=== PATIENT | female | born 1980 | race Caucasian/White ===

== ENCOUNTER 2017-05-12 19:19 | Emergency (ER) | payer OTHER ==
[2017-05-12] MEDS ORDERED: KETOROLAC 30 MG/ML VIAL IVP ONE (19:33)
--- NOTE | 2017-05-12 19:38 | Emergency Department Record ---
History of Present Illness - General Chief Complaint: Abdominal Pain Stated Complaint: R ABD PAIN Time Seen by Provider: 05/12/17 19:20 Source: Patient Mode of Arrival: Ambulatory Limitations: No limitations - History of Present Illness Initial Comments: 36 yo female presents to ED for evaluation of right sided pelvic pain that began around 9:30 this morning. Patient denies urinary symptoms or vaginal discharge complaints, denies fevers/chills, nausea/vomiting, or a change in stools. Patient reports that moving around/walking worsen her symptoms, denies taking anything for pain prior to arrival. Patient reports history of RA and IBS. MD Complaint: Abdominal pain Onset/Timin -: Hour(s) Location: RLQ Radiation: None Migration to: No migration Severity: Moderate Quality: Aching, Burning, Sharp Consistency: Intermittent Improves With: Nothing Worsens With: Movement Associated Symptoms: Denies other symptoms - Related Data Patient : No Previous Rx's Medication Instructions Recorded Nitrofurantoin Culebra [Macrobid] 100 mg PO BID #14 capsule 05/12/17 Allergies Allergy/AdvReac Type Severity Reaction Status Date / Time codeine Allergy HIVES Verified 05/12/17 19:35 dicyclomine HCl [From Bentyl] Allergy HIVES Verified 05/12/17 19:34 etanercept [From Enbrel] Allergy HIVES Verified 05/12/17 19:35 latex Allergy HIVES Verified 05/12/17 19:35 sulfadiazine Allergy HIVES Verified 05/12/17 19:35 Travel Screening - Travel/Exposure Within Last 30 Days Have you traveled within the last 30 days?: No - Travel/Exposure Within Last Year Have you traveled outside the [place] in the last year?: No - Additonal Travel Details Have you been exposed to anyone with a communicable illness?: No Review of Systems Constitutional: Denies: Chills, Fever, Malaise, Night sweats Eyes: Denies: Eye discharge, Eye pain ENT: Denies: Congestion, Ear pain, Epistaxis Respiratory: Denies: Cough, Dyspnea Cardiovascular: Denies: Chest pain, Dyspnea on exertion Endocrine: Denies: Fatigue, Heat or cold intolerance Gastrointestinal: Reports: Abdominal pain. Denies: Constipation, Nausea, Vomiting Genitourinary: Denies: Incontinence, Retention Musculoskeletal: Denies: Arthralgia, Back pain, Gout, Joint swelling Skin: Denies: Bruising, Change in color Neurological: Denies: Abnormal gait, Confusion, Headache, Seizure Psychiatric: Denies: Anxiety Hematological/Lymphatic: Denies: Anemia, Blood Clots Past Medical History - SOCIAL HISTORY Smoking Status: Never smoker Alcohol Use: None Drug Use: None - RESPIRATORY Hx Respiratory Disorders: No - CARDIOVASCULAR Hx Cardio Disorders: No - NEURO Hx Neuro Disorders: Yes Hx Headaches: Yes - GI Hx GI Disorders: Yes Hx Irritable Bowel: Yes - Hx Genitourinary Disorders: No - ENDOCRINE Hx Endocrine Disorders: No - MUSCULOSKELETAL Hx Musculoskeletal Disorders: No - PSYCH Hx Psych Problems: Yes Hx Depression: Yes - HEMATOLOGY/ONCOLOGY Hx Hematology/Oncology Disorders: No Family Medical History Any Significant Family History?: No Physical Exam - General General Appearance: Alert, Oriented x3, Cooperative, Moderate distress Limitations: No limitations - Head Head exam: Atraumatic, Normocephalic, Normal inspection Head exam detail: negative: Abrasion, Contusion, Demarco's sign, General tenderness, Hematoma, Laceration - Eye Eye exam: Normal appearance. negative: Conjunctival injection, Periorbital swelling, Periorbital tenderness, Scleral icterus - ENT Ear exam: negative: Auricular hematoma, Auricular trauma Nasal Exam: negative: Active bleeding, Discharge, Dried blood, Foreign body Mouth exam: negative: Drooling, Laceration, Muffled voice, Tongue elevation - Neck Neck exam: Normal inspection. negative: Meningismus, Tenderness - Respiratory Respiratory exam: Normal lung sounds bilaterally. negative: Rales, Respiratory distress, Rhonchi, Stridor - Cardiovascular Cardiovascular Exam: Regular rate, Normal rhythm, Normal heart sounds - GI/Abdominal GI/Abdominal exam: Soft, Tenderness, Other (TTP to the right pubic region on examination, no erythema or signs of abscess present, no obvious hernia is present). negative: Rebound, Rigid - Rectal Rectal exam: Deferred - exam: Deferred - Extremities Extremities exam: Normal inspection. negative: Calf tenderness, Pedal edema, Tenderness - Back Back exam: Denies: CVA tenderness (R), CVA tenderness (L) - Neurological Neurological exam: Alert, Normal gait, Oriented X3 - Psychiatric Psychiatric exam: Normal affect, Normal mood - Skin Skin exam: Normal color. negative: Abrasion Type of lesion: negative: abrasion Course Vital Signs 05/12/17 19:21 Temperature 97.6 F Pulse Rate 100 H Respiratory 20 Rate Blood Pressure 176/108 Pulse Ox 97 - Reevaluation(s) Reevaluation #1: 05/12/17 20:09 Labs reviewed and are grossly unremarkable for an acute process except for 2+ bacteria in the urine. Patient is currently in CT for imaging. Reevaluation #2: 05/12/17 20:56 CT Pelvis: Nothing acute Patient reassessed and updated on all results, reports that her symptoms are improved following Toradol and she is resting comfortably reading a book. Will treat for likely UTI with instructions to continue Ibuprofen as needed for her pelvic wall symptoms and to follow-up with her PCP in 3-5 days. Patient agrees with the plan as discussed. Medical Decision Making - Lab Data Result diagrams: 05/12/17 19:41 05/12/17 19:41 Disposition Disposition: Discharge Clinical Impression: UTI (urinary tract infection) Qualifiers: Urinary tract infection type: acute cystitis Hematuria presence: without hematuria Qualified Code(s): N30.00 - Acute cystitis without hematuria Disposition: Home, Self-Care Condition: (2) Stable Instructions: Pelvic Pain in Women (ED) Additional Instructions: Return to ED if your symptoms worsen or if you have any concerns. Macrobid as directed. Follow-up with your family doctor in 3-5 days as directed. Prescriptions: Nitrofurantoin C[place]bra [Macrobid] 100 mg PO BID #14 capsule Forms: Patient Portal Access Time of Disposition: 20:59 Quality - Quality Measures Quality Measures: N/A - Blood Pressure Screening Does Patient Have Any of the Following: No Blood Pressure Classification: Pre-Hypertensive BP Reading Systolic Measurement: 148 Diastolic Measurement: 82 Screening for High Blood Pressure: < Pre-Hypertensive BP, F/U Documented > [ G8950] Pre-Hypertensive Follow-up Interventions: Referral to alternative/primary care provider.
[2017-05-12] MEDS ORDERED: 0.9 % SODIUM CHLORIDE 1000ML 1,000 ML IV SCH (19:45)
[2017-05-12 19:49] LABS: BASO % 0.5 % (0-6); EOS % 2.3 % (0-6); GRAN % 42.6 % (47-80); HEMOGLOBIN 13.2 gm/dl (11.6-16.0); LYMPH % 44.9 % (16-45); MEAN CELL VOLUME 94.6 fl (81-97); MEAN CORPUSCULAR HEMOGLOBIN 31.2 pg (27-33); MEAN PLATELET VOLUME 9.5 fl (7.4-10.4); MONO % 9.7 % (0-9); PLATELET COUNT 389 K/uL (130-400); RED BLOOD COUNT 4.23 M/uL (3.80-5.40); RED CELL DISTRIBUTION WIDTH 13.3 % (11.5-14.5); WHITE BLOOD COUNT W/O DIFF 7.9 K/uL (4.2-12.2)
[2017-05-12 19:59] LABS: URINE APPEARANCE CLEAR; URINE BILIRUBIN NEGATIVE (NEGATIVE); URINE BLOOD SMALL (NEGATIVE); URINE COLOR YELLOW; URINE GLUCOSE (UA) NEGATIVE (NEGATIVE); URINE KETONE NEGATIVE (NEGATIVE); URINE LEUKOCYTE ESTERASE NEGATIVE (NEGATIVE); URINE NITRITE NEGATIVE (NEGATIVE); URINE PROTEIN NEGATIVE (NEGATIVE); URINE UROBILINOGEN 0.2 E.U./dL (0.20 - 1.00)
[2017-05-12 20:02] LABS: HCG,QUALITATIVE URINE NEGATIVE (NEGATIVE); URINE BACTERIA 2+; URINE RBC 0-2 (NONE SEEN); URINE WBC 0 - 2 (0-2/hpf)
[2017-05-12 20:06] LABS: ALB/GLOB RATIO 1.2 (1.1-1.8); ALKALINE PHOSPHATASE 83 U/L (35-104); ALT/SGPT 10 U/L (<33); AST/SGOT 11 U/L (10.0-35.0); BLOOD UREA NITROGEN 8 mg/dL (6-20); CREATININE 0.6 mg/dL (0.5-0.9); EST GLOMERULAR FILTRATION RATE > 60 mL/min; GLUCOSE,RANDOM 105 mg/dL (74-109); TOTAL PROTEIN 7.4 g/dL (6.6-8.7)
--- NOTE | 2017-05-14 15:47 | CT SCAN REPORT ---
DATE: 05/12/2017. EXAM: CT SCAN OF THE PELVIS WITH CONTRAST. HISTORY: Right lower groin pain beginning this morning. Pain with movement. TECHNIQUE: Contrast-enhanced helical CT examination of the pelvis is performed with 100 mL of Omnipaque 300 utilized. COMPARISON: None. FINDINGS: Lack of oral contrast utilization limits evaluation of bowel. No bowel dilatation or bowel wall thickening. The appendix is at least partially visualized and is normal in appearance. There is a tiny, fat-filled umbilical hernia appearing uncomplicated. No pelvic mass, lymphadenopathy, or free pelvic fluid is visualized. The ovaries are not enlarged. The uterus is positioned near the midline. No intrinsic urinary bladder abnormality is seen. There is no evidence of inguinal hernia nor femoral hernia. There are a few nonenlarged inguinal/common femoral lymph nodes noted bilaterally. No gross subcutaneous fat stranding, mass, nor fluid collection. No lytic or blastic bone lesion is seen. IMPRESSION: 1. VERY FEW NONSPECIFIC, NONENLARGED INGUINAL/COMMON FEMORAL LYMPH NODES BILATERALLY. 2. SMALL, FAT-FILLED UMBILICAL HERNIA. THE EXAMINATION IS OTHERWISE UNREMARKABLE. JOB NUMBER: [id number] [facility]
== END 2017-05-12 21:05 | disposition home or self-care (01) ==
LOC: ER 19:19
DX: N30.00 Acute cystitis without hematuria (principal); R10.31 Right lower quadrant pain
CPT/HCPCS: 99284 ×2; 96374; 85025; 80053; 81001; 81025; 72193; Q9967; J1885; J7030

== ENCOUNTER 2017-06-30 17:32 | Emergency (ER) | payer OTHER ==
--- NOTE | 2017-06-30 17:46 | Emergency Department Record ---
History of Present Illness - General Chief complaint: Pain Stated complaint: GROIN PAIN Time Seen by Provider: 06/30/17 17:36 Source: Patient Mode of Arrival: Ambulatory Limitations: No limitations - History of Present Illness Initial comments: The patient is here due to the acute onset of R groin pain about 4 hours ago. The pain is sharp and stabbing and nonradiating. She denies any dysuria, hematuria, AP, back pain, or any vaginal bleeding or discharge. The patient had the same issue about 6 weeks ago and did come here and had a neg workup including a pelvic CT. She also denies any trauma or injury. Complaint: Other Onset/Timin -: Hour(s) Location: Right, Other History of Same: Yes Severity scale (1-10): 9 Quality: Sharp, Stabbing, Other Improves with: Nothing Worsens with: Exertion, Walking, Weight bearing Associated Symptoms: Denies other symptoms - Related Data Allergies Allergy/AdvReac Type Severity Reaction Status Date / Time codeine Allergy HIVES Verified 06/30/17 17:44 dicyclomine HCl [From Bentyl] Allergy HIVES Verified 06/30/17 17:44 etanercept [From Enbrel] Allergy HIVES Verified 06/30/17 17:44 latex Allergy HIVES Verified 06/30/17 17:44 sulfadiazine Allergy HIVES Verified 06/30/17 17:44 Travel Screening - Travel/Exposure Within Last 30 Days Have you traveled within the last 30 days?: No - Travel/Exposure Within Last Year Have you traveled outside the [place] in the last year?: No - Additonal Travel Details Have you been exposed to anyone with a communicable illness?: No - Travel Symptoms Symptom Screening: None Review of Systems Constitutional: Denies: Chills, Fever Eyes: Denies: Eye discharge ENT: Denies: Congestion Respiratory: Denies: Cough, Dyspnea Past Medical History - SOCIAL HISTORY Smoking Status: Never smoker Alcohol Use: None Drug Use: None - RESPIRATORY Hx Respiratory Disorders: No - CARDIOVASCULAR Hx Cardio Disorders: No - NEURO Hx Neuro Disorders: Yes Hx Headaches: Yes - GI Hx GI Disorders: Yes Hx Irritable Bowel: Yes - Hx Genitourinary Disorders: No - ENDOCRINE Hx Endocrine Disorders: No - MUSCULOSKELETAL Hx Musculoskeletal Disorders: No - PSYCH Hx Psych Problems: Yes Hx Depression: Yes - HEMATOLOGY/ONCOLOGY Hx Hematology/Oncology Disorders: No Family Medical History Any Significant Family History?: No Physical Exam - General General Appearance: Alert, Oriented x3, Cooperative, No acute distress - Head Head exam: Atraumatic, Normocephalic - Eye Eye exam: Normal appearance, PERRL - Neck Neck exam: Normal inspection, Full ROM. negative: Tenderness - Respiratory Respiratory exam: Normal lung sounds bilaterally. negative: Respiratory distress - Cardiovascular Cardiovascular Exam: Regular rate, Normal rhythm, Normal heart sounds - GI/Abdominal GI/Abdominal exam: Soft, Normal bowel sounds, Tenderness (The tenderness is located over the R inguinal ligament. The skin appears very normal with no swelling, abscess, or erythema. There is no significant lower abdominal tenderness.). negative: Distended, Guarding, Rebound, Rigid - exam: Normal bimanual exam, Normal external exam, Normal speculum exam. negative: Abnormal external exam, Adnexal mass (L), Adnexal mass (R), Adnexal tenderness (L), Adnexal tenderness (R), Cervical discharge, cervical motion tenderness, Enlarged uterus, Vaginal discharge, Vaginal erythema - Extremities Extremities exam: Normal inspection, Full ROM, Normal capillary refill. negative: Tenderness Image of Full Body: 1 - Location of pain and tenderness. - Back Back exam: Reports: Full ROM (There is no significant pain with ROM of the R hip.) - Neurological Neurological exam: Alert, Normal gait. negative: Abnormal gait, Motor sensory deficit Course Vital Signs 06/30/17 17:33 Temperature 98.3 F Pulse Rate 72 Respiratory 16 Rate Blood Pressure 148/95 Pulse Ox 97 - Reevaluation(s) Reevaluation #1: The patient was doing better prior to leaving [place]. Her pain was improved and she denied any AP, nausea, or vomiting. I did discuss the case with Dr. Gonzalez and he will assume care for the patient at 19:00 due to shift change. 06/30/17 18:49 Medical Decision Making - Data Complexity MDM Data: Labs Ordered and/or Reviewed - Lab Data Result diagrams: 06/30/17 18:00 06/30/17 18:00 Disposition Forms: Patient Portal Access Quality - Quality Measures Quality Measures: N/A - Blood Pressure Screening View Details: Yes Does Patient Have Any of the Following: No Blood Pressure Classification: Hypertensive Reading Systolic Measurement: 148 Diastolic Measurement: 95 Screening for High Blood Pressure: < Pre-Hypertensive BP, F/U Documented > [ G8950] Pre-Hypertensive Follow-up Interventions: Referral to alternative/primary care provider.
[2017-06-30] MEDS ORDERED: 0.9 % SODIUM CHLORIDE 1,000 ML BAG IV ONE (17:54)
[2017-06-30] MEDS ORDERED: KETOROLAC 30 MG/ML VIAL IVP ONE (17:55)
[2017-06-30 18:08] LABS: URINE APPEARANCE CLEAR; URINE BILIRUBIN NEGATIVE (NEGATIVE); URINE BLOOD SMALL (NEGATIVE); URINE COLOR YELLOW; URINE GLUCOSE (UA) NEGATIVE (NEGATIVE); URINE KETONE NEGATIVE (NEGATIVE); URINE LEUKOCYTE ESTERASE NEGATIVE (NEGATIVE); URINE NITRITE NEGATIVE (NEGATIVE); URINE PROTEIN NEGATIVE (NEGATIVE); URINE UROBILINOGEN 0.2 E.U./dL (0.20 - 1.00)
[2017-06-30 18:09] LABS: BASO % 0.2 % (0-6); EOS % 1.5 % (0-6); GRAN % 49.9 % (47-80); HEMOGLOBIN 12.3 gm/dl (11.6-16.0); MEAN CELL VOLUME 94.1 fl (81-97); MEAN CORPUSCULAR HEMOGLOBIN 31.3 pg (27-33); MEAN CORPUSCULAR HGB CONC 33.2 g/dl (32-36); MEAN PLATELET VOLUME 9.2 fl (7.4-10.4); MONO % 7.4 % (0-9); PLATELET COUNT 381 K/uL (130-400); RED BLOOD COUNT 3.93 M/uL (3.80-5.40); RED CELL DISTRIBUTION WIDTH 13.1 % (11.5-14.5); WHITE BLOOD COUNT W/O DIFF 9.4 K/uL (4.2-12.2)
[2017-06-30 18:11] LABS: HCG,QUALITATIVE URINE NEGATIVE (NEGATIVE)
[2017-06-30 18:22] LABS: URINE EPITHELIAL CELLS 0 - 2 (FEW); URINE RBC 0 - 2 (NONE SEEN); URINE WBC NONE SEEN (0-2/hpf)
[2017-06-30 18:23] LABS: URINE BACTERIA NONE SEEN
[2017-06-30 18:25] LABS: BLOOD UREA NITROGEN 11 mg/dL (6-20); CREATININE 0.6 mg/dL (0.5-0.9); EST GLOMERULAR FILTRATION RATE > 60 mL/min
[2017-06-30 18:28] LABS: GLUCOSE,RANDOM 97 mg/dL (74-109)
--- NOTE | 2017-06-30 20:25 | Emergency Department Record ---
History of Present Illness - General Chief complaint: Pain Stated complaint: GROIN PAIN Time Seen by Provider: 06/30/17 17:36 Source: Patient Mode of Arrival: Ambulatory Limitations: No limitations - History of Present Illness Onset/Timin -: Hour(s) Location: Right, Other History of Same: Yes Severity scale (1-10): 9 Quality: Sharp, Stabbing, Other Improves with: Nothing Worsens with: Exertion, Walking, Weight bearing Associated Symptoms: Denies other symptoms - Related Data Allergies Allergy/AdvReac Type Severity Reaction Status Date / Time codeine Allergy HIVES Verified 06/30/17 17:44 dicyclomine HCl [From Bentyl] Allergy HIVES Verified 06/30/17 17:44 etanercept [From Enbrel] Allergy HIVES Verified 06/30/17 17:44 latex Allergy HIVES Verified 06/30/17 17:44 sulfadiazine Allergy HIVES Verified 06/30/17 17:44 Travel Screening - Travel/Exposure Within Last 30 Days Have you traveled within the last 30 days?: No - Travel/Exposure Within Last Year Have you traveled outside the [place] in the last year?: No - Additonal Travel Details Have you been exposed to anyone with a communicable illness?: No - Travel Symptoms Symptom Screening: None Review of Systems Constitutional: Denies: Chills, Fever Eyes: Denies: Eye discharge ENT: Denies: Congestion Respiratory: Denies: Cough, Dyspnea Past Medical History - SOCIAL HISTORY Smoking Status: Never smoker Alcohol Use: None Drug Use: None - RESPIRATORY Hx Respiratory Disorders: No - CARDIOVASCULAR Hx Cardio Disorders: No - NEURO Hx Neuro Disorders: Yes Hx Headaches: Yes - GI Hx GI Disorders: Yes Hx Irritable Bowel: Yes - Hx Genitourinary Disorders: No - ENDOCRINE Hx Endocrine Disorders: No - MUSCULOSKELETAL Hx Musculoskeletal Disorders: No - PSYCH Hx Psych Problems: Yes Hx Depression: Yes - HEMATOLOGY/ONCOLOGY Hx Hematology/Oncology Disorders: No Family Medical History Any Significant Family History?: No Physical Exam - General Limitations: No limitations Course Vital Signs 06/30/17 06/30/17 17:33 20:20 Temperature 98.3 F 98.2 F Pulse Rate 72 Pulse Rate [ 84 Pulse Ox Probe] Respiratory 16 20 Rate Blood Pressure 148/95 Blood Pressure 151/94 [Left Arm] Pulse Ox 97 97 Medical Decision Making - Lab Data Result diagrams: 06/30/17 18:00 06/30/17 18:00 Lab Results 06/30/17 06/30/17 06/30/17 Range/Units 18:00 18:00 18:00 WBC 9.4 (4.2-12.2) K/uL RBC 3.93 (3.80-5.40) M/uL Hgb 12.3 (11.6-16.0) gm/dl Hct 37.0 (35.0-47.0) % MCV 94.1 (81-97) fl MCH 31.3 (27-33) pg MCHC 33.2 (32-36) g/dl RDW 13.1 (11.5-14.5) % Plt Count 381 (130-400) K/uL MPV 9.2 (7.4-10.4) fl Gran % 49.9 (47-80) % Lymphocytes % 41.0 (16-45) % Monocytes % 7.4 (0-9) % Eosinophils % 1.5 (0-6) % Basophils % 0.2 (0-6) % Sodium 137 (136-145) mmol/L Potassium 4.0 (3.4-4.5) mmol/L Chloride 100 (98-107) mmol/L Carbon Dioxide 23.0 (22-29) mmol/L Anion Gap 14.0 (7-16) BUN 11 (6-20) mg/dL Creatinine 0.6 (0.5-0.9) mg/dL Estimated GFR > 60 mL/min Random Glucose 97 (74-109) mg/dL Calcium 8.8 (8.6-10.0) mg/dL Urine Color Yellow Urine Appearance Clear Urine pH 6.0 (5.0-8.0) Ur Specific Bruin <= 1.005 (1.002-1.030) Urine Protein Negative (NEGATIVE) Urine Glucose (UA) Negative (NEGATIVE) Urine Ketones Negative (NEGATIVE) Urine Blood Small H (NEGATIVE) Urine Nitrite Negative (NEGATIVE) Urine Bilirubin Negative (NEGATIVE) Urine Urobilinogen 0.2 (0.20 - 1.00) E.U./dL Ur Leukocyte Esterase Negative (NEGATIVE) Urine RBC 0 - 2 (NONE SEEN) Urine WBC None seen (0-2/hpf) Ur Epithelial Cells 0 - 2 (FEW) Urine Bacteria None seen Urine HCG, Qual Negative (NEGATIVE) Wet Prep 12/01/17 Range/Units 18:42 WBC (4.2-12.2) K/uL RBC (3.80-5.40) M/uL Hgb (11.6-16.0) gm/dl Hct (35.0-47.0) % MCV (81-97) fl MCH (27-33) pg MCHC (32-36) g/dl RDW (11.5-14.5) % Plt Count (130-400) K/uL MPV (7.4-10.4) fl Gran % (47-80) % Lymphocytes % (16-45) % Monocytes % (0-9) % Eosinophils % (0-6) % Basophils % (0-6) % Sodium (136-145) mmol/L Potassium (3.4-4.5) mmol/L Chloride (98-107) mmol/L Carbon Dioxide (22-29) mmol/L Anion Gap (7-16) BUN (6-20) mg/dL Creatinine (0.5-0.9) mg/dL Estimated GFR mL/min Random Glucose (74-109) mg/dL Calcium (8.6-10.0) mg/dL Urine Color Urine Appearance Urine pH (5.0-8.0) Ur Specific Bruin (1.002-1.030) Urine Protein (NEGATIVE) Urine Glucose (UA) (NEGATIVE) Urine Ketones (NEGATIVE) Urine Blood (NEGATIVE) Urine Nitrite (NEGATIVE) Urine Bilirubin (NEGATIVE) Urine Urobilinogen (0.20 - 1.00) E.U./dL Ur Leukocyte Esterase (NEGATIVE) Urine RBC (NONE SEEN) Urine WBC (0-2/hpf) Ur Epithelial Cells (FEW) Urine Bacteria Urine HCG, Qual (NEGATIVE) Wet Prep No trich or yeast Disposition Disposition: Discharge Clinical Impression: Groin pain Disposition: Home, Self-Care Condition: (1) Good Additional Instructions: Call your doctor for close follow up of your recurrent groin pain Return if fever, uncontrolled pain, fever, swelling or any new concerns Forms: Patient Portal Access Time of Disposition: 20:25 Quality - Quality Measures Quality Measures: N/A - Blood Pressure Screening Does Patient Have Any of the Following: No Blood Pressure Classification: Hypertensive Reading Systolic Measurement: 148 Diastolic Measurement: 95 Screening for High Blood Pressure: < Pre-Hypertensive BP, F/U Documented > [ G8950] Pre-Hypertensive Follow-up Interventions: Referral to alternative/primary care provider.
--- NOTE | 2017-07-01 11:08 | ULTRASOUND REPORT ---
EXAM: ULTRASOUND PELVIC W TRANSVAG (NON-OB) HISTORY: GROIN PAIN. TECHNIQUE: Transverse and longitudinal, transabdominal and transvaginal sonographic images of the pelvis. COMPARISON: Prior pelvic ultrasound from 05/30/17. FINDINGS: On transabdominal images, the uterus measures 8.4 x 3.7 x 4.8 cm. The endometrium and ovaries are not well-seen transabdominally. Myometrium is homogeneous. On transvaginal imaging, the endometrium measures 6 mm in thickness. Nabothian cysts are present. The myometrium is homogeneous. The right ovary measures 2.8 x 2.9 x 2.5 cm. The left ovary measures 1.9 x 1.5 x 1.7 cm. Bilateral ovarian follicles. No solid adnexal mass. Doppler and spectral analysis with color-flow is utilized. Arterial and venous flow to both ovaries. No free fluid. Additional imaging was obtained in the region of the patient's pain in the superficial surface of the pelvis. No sonographic abnormality in this region. IMPRESSION: UNREMARKABLE PELVIC ULTRASOUND. JOB NUMBER: [id number] [facility] [place] [facility]
[2017-07-03 16:21] LABS: GC SPECIMEN TYPE Vaginal
== END 2017-06-30 20:31 | disposition home or self-care (01) ==
LOC: ER 17:32
DX: R10.31 Right lower quadrant pain (principal)
CPT/HCPCS: 99284 ×2; 96374; 85025; 80048; 81001; 81025; 76856; 76830; Q0111; J1885; 87210; J7030